=== PATIENT | male | born 1965 | race Caucasian/White ===

== ENCOUNTER 2020-09-20 12:55 | Inpatient (IN) | payer OTHER ==
[~2020-09-20] VITALS: Ht 162.6 cm; Wt 77.6 kg
[2020-09-20 13:10] VITALS: Ht 162.6 cm; Wt 77.6 kg
[2020-09-20 13:31] LABS: BASOPHIL % 0.3 % (0-2); RED CELL DISTRIBUTION WIDTH 14.3 % (11.5-14.5)
--- NOTE | 2020-09-20 13:31 | NUR ---
PT BIBA REPORTING CHEST PAIN X3 MONTHS. PT STATES CHEST PAIN OCCURS ON EXERTION. PT STATES PAIN BEGAN TO GET WORSE OVER THE LAST 3 DAYS. PT REPORTS "PRESSURE/SHARP" PAIN TO CHEST THAT RADIATES TO L. SHOULDER AND EPIGASTRIC AREA. PT REPORTS PMHX OF SC IN 2005 & 2010 WHERE HE HAD 2 STENTS PLACED. PT BRADYCARDIC PER MEDIC IN ROUTE. PT PLACED OF FCM, RESP E/U. PT APPEARS TO BE IN NO ACUTE DISTRESS. PT CURRENLTY ON GURNEY, SIDE RAILS X2, 2 CORRECTIONAL OFFICERS IN ROOM. NO FURTHER NEEDS NOTED.
[2020-09-20 13:36] LABS: PLATELET COUNT 125 x10^3mcL (130-400)
[2020-09-20 13:45] LABS: CALCIUM 9.4 mg/dL (8.5-10.1); CHLORIDE SERUM 108 mmol/L (98-107); CREATININE SERUM 1.1 mg/dL (0.7-1.3); GFR1 > 60 mL/min; GLUCOSE SERUM 91 mg/dL (74-106); POTASSIUM SERUM 4.7 mmol/L (3.5-5.1); SODIUM SERUM 142 mmol/L (136-145)
[2020-09-20 14:01] LABS: ALBUMIN 4.2 g/dL (3.4-5.0); ALKALINE PHOSPHATASE 118 U/L (46-116); ALT/SGPT 44 U/L (16-63); AST/SGOT 33 U/L (15-37); BILIRUBIN TOTAL 0.45 mg/dL (0.20-1.00); TOTAL PROTEIN, SERUM 7.6 g/dL (6.4-8.2)
[2020-09-20] MEDS ORDERED: D-10001 TAB PO (14:47)
[2020-09-20] MEDS ORDERED: LIPI10 PO (14:49)
[2020-09-20] MEDS ORDERED: OMEPRAZOLE MAGN20 M1 PO (14:49)
[2020-09-20] MEDS ORDERED: DULCOLAX5 M1 PO (14:49)
[2020-09-20] MEDS ORDERED: NOR5 PO (14:50)
[2020-09-20] MEDS ORDERED: ASPIRIN FOR CHI81 M1 PO (14:50)
[2020-09-20] MEDS ORDERED: LEVOXYL0.05 MG PO (14:50)
--- NOTE | 2020-09-20 15:24 | NUR ---
PT ASLEEP ON GURNEY S/F. AROUSABLE TO VERBAL STIMULI. RESPIRATION E/U. CORRECTIONAL OFFICERS AT BEDSIDE. PT DENIES PAIN/DISCOMFORT AT THIS TIME.
[2020-09-20 15:39] LABS: CHOLESTEROL/HDL RATIO 4.5; MAGNESIUM 2.3 mg/dL (1.8-2.4)
--- NOTE | 2020-09-20 16:21 | NUR ---
RECEIVED FROM ER, TRANSPORTED VIA [facility], ACCOMPANIED BY TWO CORRECTIONAL OFFICERS. PT ABLE TO AMBULATE TO BED FROM [facility]. AWAKE AND ALERT, ORIENTED TO NAME, PLACE, TIME AND SITUATION. SPEECH CLEAR AND APPROPRIATE. BREATHING EVEN AND UNLABORED ON ROOM AIR. DENIES HAVING PAIN AT THIS TIME. STATED EARLIER TODAY HAD PRESSURE LIKE PAIN TO LEFT SIDE OF CHEST. SALINE LOCK TO LEFT AC. ADMISSION HISTORY AND ASSESSMENT DONE. INSTRUCTED ON USE OF CALL LIGHT TO CALL FOR ASSISTANCE, PLACED WITHIN EASY REACH. ENDORSED TO NURSE EDGAR
--- NOTE | 2020-09-20 16:30 | NUR ---
RECEIVED PATIENT FROM RESOURCE NURSE, NO SIGNIFICANT CHANGES AT THIS TIME
[2020-09-20 16:40] VITALS: BP 151/88
--- NOTE | 2020-09-20 18:15 | NUR ---
PATIENT RESTING COMFORTABLY IN BED NO C/O OF PAIN OR DISCOMFORT AT THIS TIME, WILL ENDORSE CARE TO PM NURSE
--- NOTE | 2020-09-20 20:07 | NUR ---
RECEIVED PT IN BED AAOX4 NO ACUTE DISTRESS PT DENY CHEST PAIN AT THE MOMENT , ON TELE 13 THATS SHOWS SB HR 40, ON RA SAT 98% NO RESP DISTRESS NOTED LUNG SOUNDS DM ,HL TO LAC INTACT FLUSHING WELL , GUARDS AT THE BEDSIDE FOR SAFETY , CALL LIGHT WITHIN PT'S REACH , WILL CON'T TO MONITOR AND ASSIST PT WITH CARE .
--- NOTE | 2020-09-20 20:57 | NUR ---
DR ARBOLEDA'S AWARE OF PT'S LOW HR , PT'S ASYMPTOMATIC AT THE MOMENT , WILL CON'T TO MONITOR PT .
--- NOTE | 2020-09-20 22:09 | NUR ---
TYLENOL 650MG PO GIVEN FOR H/A , 22G IV INSERTED TO RFA BY RN , PT TOLERATED WELL , OLD IV SITE REMOVED PER PT REQUEST THAT IV SITE WAS HURTING ,ANGIO CATH INTACT.
--- NOTE | 2020-09-20 23:31 | NUR ---
TROPS 0.118 DR ARBOLEDA AWARE ORDERED LOVENOX 1MG/KG BID 1ST DOSE TONIGH, PT'S IN BED DENY CHEST PAIN , TELE SB HR 40
--- NOTE | 2020-09-21 00:24 | NUR ---
LOVENOX 80MG GIVEN LLQ SQ ORDERED. NO S/S OF BLEEDING NOTED , PT;S AWAKE DENY CHEST PAIN AT THE MOMENT , TELE SB HR 41.
--- NOTE | 2020-09-21 00:47 | NUR ---
I HAVE REVIEWED THE DATA COLLECTION BY LAUREN (NAME): PAWAN STEELE ENTERED ON (DATE/TIME): 09/20/20 I CONCUR WITH THE DATA AND ANY EXCEPTIONS OR COMMENTS ARE LISTED BELOW: NONE PATIENT'S PLAN OF CARE WAS DISCUSSED AND REVIEWED WITH SALES REPRESENTATIVE [employer]: PAWAN STEELE
--- NOTE | 2020-09-21 06:25 | NUR ---
NO CHANGES OF CONDITION NOTED, PT'S HR REMAINED ON 30'S AYMPTOMATIC , SCHEDULED MEDS GIVEN NO REACTION NOTED.HL PATENT
[2020-09-21 07:06] LABS: BASOPHIL % 0.5 % (0-2)
[2020-09-21 07:23] LABS: PLATELET COUNT 124 x10^3mcL (130-400); RED CELL DISTRIBUTION WIDTH 14.6 % (11.5-14.5)
[2020-09-21 07:35] LABS: CALCIUM 8.8 mg/dL (8.5-10.1); CARBON DIOXIDE 29.5 mmol/L (21-32); CHLORIDE SERUM 106 mmol/L (98-107); CREATININE SERUM 1.1 mg/dL (0.7-1.3); GFR1 > 60 mL/min; GLUCOSE SERUM 89 mg/dL (74-106); POTASSIUM SERUM 4.4 mmol/L (3.5-5.1); SODIUM SERUM 142 mmol/L (136-145)
--- NOTE | 2020-09-21 08:00 | NUR ---
0725AM: PATIENT IS RESTING IN BED QUEITLY. NO ADDITIONAL DISTRESS NOTED. CALL LIGHT WITHIN REACH. WILL CONT TO MONITOR. X2 DEPUTY AT THE BEDSIDE AT ALL TIMES. 0800AM: EXPLAINED PLAN OF CARE AND PATIENT VERBALIZED UNDERSTANDING. DENIES PAIN, DISTRESS, OR SOB AT THIS TIME. WILL CONT TO MONITOR. X2 DEPUTY AT THE BEDSIDE AT TIMES.
[2020-09-21 08:39] VITALS: BP 171/67
[2020-09-21 08:44] VITALS: BP 125/76
--- NOTE | 2020-09-21 09:00 | NUR ---
MOVED PATIENT TO ROOM 232B. IN STABLE CONDITION AT THIS TIME.
[2020-09-21 12:23] VITALS: BP 116/73
--- NOTE | 2020-09-21 13:30 | NUR ---
MOVED TO ROOM 230A IN STABLE CONDITION.
--- NOTE | 2020-09-21 14:00 | NUR ---
DR NICOLE AT THE STATION AND OK FOR PATIENT TO TAKE A SHOWER. MADE PATIENT AWARE AND DEPUTY.
[2020-09-21 15:53] VITALS: BP 113/74
--- NOTE | 2020-09-21 18:30 | NUR ---
NO BEHAVIOR DISTURBANCE NOTED THE WHOLE SHIFT. PATIENT WAS CALM, POLITE,A DN COMPLIANT WITH PLAN OF CARE.
--- NOTE | 2020-09-21 18:30 | NUR ---
PATIENT IS RESTING IN BED QUEITLY. NO ADDITIONAL DISTRESS NOTED. CALL LIGHT WITHIN REACH. STABLE CONDITION THE WHOLE SHIFT. DEPUTY X2 AT THE BEDSIDE AT ALL TIMES.
--- NOTE | 2020-09-21 19:55 | NUR ---
RECEIVED PT IN BED AAOX4 DENY CHEST PAIN , TELE SB HR 45. HL PATENT FLUSHING WELL , CALL LIGHT WITHIN PT\;S REACH , WILL CON'T TO MONITOR AND ASSIST PT WITH CARE .
[2020-09-21 20:11] VITALS: BP 114/70; BP 114/72
--- NOTE | 2020-09-22 03:24 | NUR ---
IN BED WITH EYES CLOSED , TELE SB HR 45
[2020-09-22 04:58] VITALS: BP 122/75
--- NOTE | 2020-09-22 06:27 | NUR ---
PREP PT FO CARDIAC CATH , PT TOLERATED WELL , KEPT NPO SINCE MIDNIGHT ,NO ACUTE DISTRESS NOTED, SCHEDULED MEDS GIVEN EXCEPT LOVENOX. TELE SB HR 46.
[2020-09-22 06:38] LABS: microscopic required? NO
--- NOTE | 2020-09-22 07:10 | NUR ---
OFF THE FLOOR FOR CARDIAC CATH.
[2020-09-22 07:26] LABS: UA SPECIFIC GRAVITY 1.015 (1.005-1.035); urine erythrocyte NEGATIVE (NEGATIVE)
[2020-09-22 08:16] LABS: AMPHETAMINE QUAL UR NONE DETECTED (See below)
[2020-09-22 08:30] VITALS: BP 129/84
--- NOTE | 2020-09-22 08:30 | NUR ---
EXPLAINED PLAN OF CARE AND PATIENT VERBALIZED UNDERSTANDING. NO ADDITIONAL DISTRESS NOTED AT THIS TIME.
--- NOTE | 2020-09-22 08:30 | NUR ---
PATIENT RETURN FROM [facility]. PATIENT IS RECOMMENDED TO HAVE OPEN HEART SURGERY. NOTED X3 CAD. PATIENT IS IN STABLE CONDITION. INSTRUCT TO LAY FLAT FOR 2HOURS. RIGHT GROIN DRESSING CLEAN, DRY, AND INTACT. PATIENT IS AAOX4, ABLE TO MAKE NEEDS KNOWN DEPUTY AT THE BEDSIDE AT ALL TIMES.
--- NOTE | 2020-09-22 10:30 | NUR ---
1030AM: ITS BEEN 2 HOURS SINCE PATIENT HAS BEEN LAYING FLAT ON HIS BACK. MADE PATIENT AWARE THAT HIS OKAY TO OOB.
[2020-09-22 12:07] VITALS: BP 121/76
[2020-09-22 17:00] VITALS: BP 121/77
--- NOTE | 2020-09-22 18:30 | NUR ---
PATIENT IS RESTING IN BED QUEITLY. NO ADDITIONAL DISTRESS NOTED. CALL LIGHT WITHIN REACH. RIGHT GROIN DRESSING C/D/I. WILL CONT TO MONITOR. DEPUTY X2 AT [facility] BEDSIDE AT ALL TIMES.
--- NOTE | 2020-09-22 19:25 | NUR ---
IN BED AAOX4 NO ACUTE DISTRESS NOTED , PT DENY CHEST PAIN , TELE SB HR 48, HL INTACT , S/P CARDIAC CATH SITE C/D/I NO HEMATOMA NOTED , CALL LIGHT WITHIN PT;S REACH .
[2020-09-22 19:59] VITALS: BP 115/73
[2020-09-23 05:09] VITALS: BP 108/66
--- NOTE | 2020-09-23 06:43 | NUR ---
NO CHANGES OF CONDITION NOTED, CATH SITE PATENT NO HEMATOMA NOTED , HL INTACT , TELE SB HR 45
--- NOTE | 2020-09-23 07:20 | NUR ---
0720AM: PATIENT IS RESTING BE QUIETLY. NO ADDITIONAL DISTRESS NOTED. RIGHT GROIN CARDIAC CATH SITE DRESSING C/D/I. CALL LIGHT WITHIN REACH. WILL CONT TO MONITOR.
--- NOTE | 2020-09-23 08:00 | NUR ---
0800AM: EXPLAINED PLAN OF CARE AND PATIENT VERBALIZED UNDERSTANDING. STABLE CONDITION AT THIS TIME. DEPUTY X2 AT THE BEDSIDE AT ALL TIMES. WILL CONT TO MONITOR.
[2020-09-23 08:15] VITALS: BP 103/79
[2020-09-23 12:10] VITALS: BP 113/77
--- NOTE | 2020-09-23 14:30 | NUR ---
PATIENT TOOK A SHOWER. STABLE CONDITION AT THIS TIME.
[2020-09-23 16:50] VITALS: BP 104/66
--- NOTE | 2020-09-23 18:34 | NUR ---
PATIENT IS RESTING IN BEQ QUIETLY, WATCHING TV. NO ADDITIONAL DISTRESS NOTED. CALL LIGHT WITHIN REACH. DEPUTY X2 AT THE BEDSIDE AT ALL TIMES. WILL CONT TO MONITOR.
--- NOTE | 2020-09-23 19:30 | NUR ---
RECEIVED PT FROM DAY SHIFT NURSE, PT IS RESTING IN BED AWAKE AND ALERT A&OX4. TELE 13, NSR. DENIES CP, DIZZINESS, GILLIAM, N/V AND PALPITATIONS. PALPABLE PULSES, NO EDEMA NOTED. BREATHING IS EVEN AND UL ON RA, LUNG SOUNDS CTA. NO SOB OR ACUTE RESPIRATORY DISTRESS NOTED. BOWEL SOUNDS ACTIVE X4, ABD IS SOFT AND ROUND. AMBULATORY AT BASELINE, VOIDS W/O DIFFICULTY. CARDIAC CATHETER INSERTION SITE TO R GROIN, TEGADERN IN PLACE, CDI NO ACTIVE BLEEDING NOTED. IV TO RFA, CDI AND PATENT, FLUSHING WELL. NO C/O PAIN OR DISCOMFORT NOTED. BED IN LOWEST POSITION. CALL LIGHT IS W/IN REACH. WILL CONTINUE TO MONITOR.
[2020-09-23 20:54] VITALS: BP 99/69
--- NOTE | 2020-09-24 | NUR ---
PT IS RESTING IN BED AWAKE AND ALERT. NO C/O PAIN OR DISCOMFORT AT THIS TIME. REMAINS IN STABLE CONDITION. BED IN LOWEST POSITION. CALL LIGHT IS W/IN REACH. WILL CONTINUE TO MONITOR.
[2020-09-24 05:25] VITALS: BP 121/67
--- NOTE | 2020-09-24 06:09 | NUR ---
PT IS RESTING IN BED AWAKE AND ALERT. NO C/O PAIN OR DISCOMFORT THROUGHOUT SHIFT. VSS. REMAINS IN STABLE CONDITION. NO SIGNIFICANT CHANGES AT THIS TIME. BED IN LOWEST POSITION. CALL LIGHT IS W/IN REACH. WILL ENDORSE TO DAY SHIFT NURSE.
--- NOTE | 2020-09-24 07:44 | NUR ---
RECEIVED PT FROM PM NURSE. PT IS AWAKE AND RESTING COMFORTABLY AT THIS TIME. NO FACIAL DISTRESS OR SOB NOTED. PT IS A/OX4. ABLE TO MAKE NEEDS KNOWN. DENIES GILLIAM/DIZZINESS. LUNG SOUNDS CTA. BREATHING E/U ON RA. TELE #13. DENIES CP/PRESSURE. PALPABLE PULSES. NO EDEMA NOTED. ACTIVE BSX4. ABD SOFT AND ROUND. DENIES N/V/D. VOIDS FREELY. SKIN INTACT. CARDIAC CATHETER INSERTION SITE TO R GROIN. TEGADERM IN PLACE. CDI. NO C/O PAIN AT THIS TIME. IV 22G TO RFA. SL. FLUSHES WITH NO DIFFICULTY. BED AT LOWEST POSITION. CALL BUTTON WITHIN REACH. GUARDS BY BEDSIDE. WILL CONTINUE TO MONITOR.
[2020-09-24 08:07] VITALS: BP 121/73
[2020-09-24 16:44] VITALS: BP 95/71
--- NOTE | 2020-09-24 18:47 | NUR ---
NO ACUTE DISTRESS DURING SHIFT. WILL ENDORSE CARE TO PM SHIFT FOR CONTINUITY OF CARE.
--- NOTE | 2020-09-24 19:20 | NUR ---
RECEIVED PT FROM DAY SHIFT RN. PT A&O X4. PT DENIES CHEST PAIN OR DISCOMFORT AT THIS TIME. PT ON TELE#13, SB AT 50S, PUSLES REGULAR AND NO EDEMA NOTED. LUNG SOUNDS CLEAR BILATERAL, ON ROOM AIR. BOWEL SOUNDS ACTIVE, ABDOMEN SOFT AND NON-TENDER. PT DENIES ABDOMEN PAIN. SKIN WARM AND DRY, CARDIAC CATH R GROIN NO REDNESS OR WARM NOTED.IV RFA, INTACT AND PATENT. INSTRUCTED PT TO USE CALL LIGHT AND PHONE WHEN NEED ASSISTANCE. WILL CONTINUE TO MONITOR PT.
[2020-09-24 21:09] VITALS: BP 115/65
[2020-09-25] VITALS (7 sets, daily range): BP systolic 105–122; BP diastolic 64–81
--- NOTE | 2020-09-25 | NUR ---
IN TO CHECK ON PT. PT RESTING IN BED. DENIES CHEST PAIN OR DISCOMFORT. NO SOB NOTED. WILL CONTINUE TO MONITOR PT.
--- NOTE | 2020-09-25 07:02 | NUR ---
PT RESTING WELL DURING SHIFT. NO ACUTE S/S CONDITION NOTED. PT DENIES CHEST PAIN, DENIES N/V, DENIES SOB. WILL ENDORSE CARE TO DAY SHIFT RN.
--- NOTE | 2020-09-25 07:32 | NUR ---
RECEIVED PT FROM PM NURSE. PT IS AWAKE AND RESTING COMFORTABLY IN BED AT THIS TIME. NO FACIAL DISTRESS OR SOB NOTED. PT IS A/OX4. ABLE TO MAKE NEEDS KNOWN. DENIES GILLIAM/DIZZINESS. LUNGS SOUNDS CTA. BREATHING E/U ON RA. TELE #13. DENIES CP OR PALPITATIONS. PULSES EVEN AND PALPABLE. NO EDEMA NOTED. ACTIVE BSX4. ABD SOFT AND NON DISTENDED. VOIDS FREELY. URINAL BY BEDSIDE. AMBULATORY BASELINE. SKIN INTACT. TEGADERM IN PLACE TO THE RIGHT GROIN D/T PREVIOUS CARDIAC CATH INSERTION. NO C/O PAIN AT THIS TIME. IV 22G TO RFA. SL. FLUSHES WITH NO DIFFICULTY. BED AT LOWEST POSITION. CALL BUTTON WITHIN REACH. GUARDS BY BEDSIDE. WILL CONTINUE TO MONITOR.
--- NOTE | 2020-09-25 10:15 | NUR ---
RECEIVED PATIENT TRANSFER FROM NURSE. RECEIVED REPORT. PATIENT LUNGS ARE CLEAR/DIMINISHED. HR REGULAR BUT ANAMARIA. BOWEL SOUNDS ACTIVE. NO EDEMA NOTED. PATIENT DENIES PAIN AT THIS TIME. WILL CONTINUE TO MONITOR. BED LOCKED IN LOWEST POSITION. CALL LIGHT IN REACH. GUARDS AT BEDSIDE. WATER PROVIDED. DENIES NEEDING ANYTHING AT THIS TIME.
--- NOTE | 2020-09-25 10:21 | NUR ---
PT WAS TESTED POSITIVE FOR COVID 19. PT WILL BE MOVING TO [address] [place] [address]. REPORT GIVEN TO PAL PUENTE. PT LEFT IN STABLE CONDITION TO ROOM 201B WITH ALL PERSONAL BELONGINGS.
--- NOTE | 2020-09-25 18:02 | NUR ---
PATIENT ALERT AND ORIENTED. DENIES NEEDING ANYTHING AT THIS TIME. BED LOCKED IN LOWEST POSITION. CALL LIGHT IN REACH. DENIES PAIN AT THIS TIME.
--- NOTE | 2020-09-25 19:49 | NUR ---
IN BED NO RESP DISTRESS NOTED , TELEL 13 SHOWS SB HR 48, PT DENY CHEST PAIN AT THE MOMENT , HL INTACT FLUSHING WELL. CALL LIGHT WITHIN PT'S REACH .
--- NOTE | 2020-09-26 01:41 | NUR ---
PT IN BED WITH EYES CLOSED , TELE SB HR 48
[2020-09-26 05:22] VITALS: BP 109/67
--- NOTE | 2020-09-26 06:45 | NUR ---
NO CHANGES HR 48, HL PATENT .
--- NOTE | 2020-09-26 07:33 | NUR ---
RECEIVEE PATIENT IN BED, ALERT AND ORIENTED. GUARDS AT AT DOOR TELE 13 SB. NO RESP DISTRESS NOTED. HL RT F/A. DENIES ANY PAIN OR DISCOMFORT AT THIS TIME. WILL CONTINUE TO MONITOR.
[2020-09-26 07:35] LABS: CARBON DIOXIDE 29.8 mmol/L (21-32); CHLORIDE SERUM 103 mmol/L (98-107); CREATININE SERUM 1.1 mg/dL (0.7-1.3); GFR1 > 60 mL/min; GLUCOSE SERUM 83 mg/dL (74-106); POTASSIUM SERUM 5.1 mmol/L (3.5-5.1); SODIUM SERUM 140 mmol/L (136-145)
--- NOTE | 2020-09-26 07:40 | NUR ---
PATIENT IS IN ISOLATION FOR + COVID.
[2020-09-26 07:50] LABS: BASOPHIL % 0.7 % (0-2); RED CELL DISTRIBUTION WIDTH 13.4 % (11.5-14.5)
[2020-09-26 07:51] LABS: PLATELET COUNT 117 x10^3mcL (130-400)
--- NOTE | 2020-09-26 08:57 | NUR ---
PATIENT'S SAT DROPPED FROM 84%-34%. PATIENT FOUND WITH OXYMIZEER AND NRM OFF EATING HIS BREAKFAST TRAY. O2 REAPPLIED SAT 84%. R.T AWARE AND WILL PUT PATIENT ON HIGH FLOW O2. PATIENT MOVED TO ROOM 214B A NEGATIVE AIR FLOW ROOM AT THIS TIME. PATIENT SITTING UP IN BED AWAKE AND ALERT. WILL CONTINUE TO MONITOR.
--- NOTE | 2020-09-26 09:48 | NUR ---
MICAELA IS SITTING UP IN BED, GUARDS AT DOOR. PATIENT REQUESTING TO SHOWE. PATIENT DOES HAVE A DR.'S ORDER THAT HE MAY SHOWER, BUT PER THE [facility] GUARDS AT DOORWAY IT IS NOT THEIR POLICY THAT PATIENT SHOWERS. WILL PROVIDED PATIENT WITH SUPPLIES TO WASH UP.
[2020-09-26 12:17] VITALS: BP 109/72
--- NOTE | 2020-09-26 13:40 | NUR ---
PATIENT'S PLAN OF CARE WAS DISCUSSED AND REVIEWED WITH PROVIDER CONTRACTING CONSULTANT:JOSIE BEASLEY. I HAVE REVIEWED THE DATA COLLECTION BY PROVIDER CONTRACTING CONSULTANT (NAME):JOSIE BEASLEY. ENTERED ON (DATE/TIME):09/26/20. I CONCUR WITH THE DATA AND ANY EXCEPTIONS OR COMMENTS ARE LISTED BELOW:
--- NOTE | 2020-09-26 15:14 | NUR ---
PATIENT REMAINS IN BED. NO CHANGE IN CONDITION NOTED. CONTINUES TO DENY ANY CHEST PAIN OR DISCOMFORT. NO ACUTE DISTRESS NOTED.
[2020-09-26 16:41] VITALS: BP 101/69
--- NOTE | 2020-09-26 18:01 | NUR ---
PATIENT REMAINS IN BED. NO CHANGE IN CONDITION NOTED THIS SHIFT. CONTINUES TO DENY ANY CHEST PAIN OR DISCOMFORT.
--- NOTE | 2020-09-26 18:26 | NUR ---
RECEIVED CALL FROM JULIANNE AT [facility], STATES THEY ARE UNABLE TO ACCEPT THIS PATIENT DUE TO POSITIVE COVID PCR. DR. ARBOLEDA MADE AWARE.
[2020-09-26 19:18] VITALS: BP 112/69
--- NOTE | 2020-09-26 19:35 | NUR ---
IN BED DENY CHEST PAIN , TELE NSR HR 66 , HL PATENT FLUSHING WELL , GUARDS AT THE BED SIDE FOR SAFETY . RESP EVEN NO DISTRESS NOTED .
--- NOTE | 2020-09-27 02:55 | NUR ---
MOVED PT TO ROOM 221A , RE-ORIENTED PT TO THE ROOM PT VERBALIZED UNDERSTANDING , TELE NSR .
[2020-09-27 04:23] VITALS: BP 126/72
--- NOTE | 2020-09-27 06:48 | NUR ---
NO CHANGES , PT;S IN BED AWAKE TELE SB HR 48
[2020-09-27 07:21] VITALS: BP 107/74
--- NOTE | 2020-09-27 07:44 | NUR ---
RECEIVED PT FROM NIGHT NURSE. HE IS AAOX4. FOUND SITTING UPRIGHT AND COMFORTABLY IN BED. DENIES CHEST PAIN AND PARESTHESIAS IN UPPER EXTREMITIES, DESPITE HX. HR 58 BPM ON THE MONITOR. NO ACUTE DISTRESS NOTED. 97% SAO2 ON ROOM AIR. WILL CONTINUE TO MONITOR.
[2020-09-27 12:32] VITALS: BP 108/68
--- NOTE | 2020-09-27 13:53 | NUR ---
Initial Nutrition Assessment 201B León Guaman - 55/M Dx: Chest Pain PMHx: CAD, HTN, MA, Syncope PSHx: None Labs: (09/25) PLT CT 117L, BUN 19H, TROP 0.118H, TRIG 166H, LDL 121H Meds: Synthroid, Prilosec, Lovenox, Zestril, Lipitor, Vit D, Colace, Aspirin, Tylenol Diet: Cardiac PO intake since admission: 96% po intake average x last 6 meals Ht: 162.56cm/ 5'3" Wt: 77.564kg/ 170# BMI: 29.4 Bed scale: isolation IBW: 124#/ 56.4kg %IBW: 137% UBW: not seen Age: 55 Food Allergies: NFKA Skin condition: intact Sanchez: 22 Edema: None Last BM: 09/26 Per H&P: 54 YO MALE H/O CAD STENT MA HTN [facility] RESIDENT. HE HAD BEEN C/O CHEST PAIN ON AND OFF X FEW MONTHS. HES NOT SEEN A REPORTING ANALYST IN YEARS. HE C/O INCARESED CP THROUGHOUT THE DAY, PRESSURE LIKE SENSATION EXERTIONAL INCARESED INTENSITY. HE WAS SEEN AND EVAULTED AT THE ED, INITIAL TROPONIN WAS NEG. HE WAS ADMITTED TO [facility] FOR FURTHER EVALUATION. RD Note (09/27): Pt not seen d/t "SARS-CoV-2 PCR came back positive and patient and been placed in isolation" from last night testing. Attempting calling patient room number, did note answer. From RN shift reassessment and nutrition flowsheets patient is eating near optimal average of 96% of his cardiac diet. He is tolerating nutrition well. Had a episode of chest pain yesterday and transferred to isolation d/t covid coming back positive. Per progress note pt is pending transfer to higher level of care for CT surgery evaluation for CABG. Problem with: N/V/D/C: none per shift reassessment Problems with: Chewing: Swallowing: none Current appetite: good/ optimal intake Recent wt change: unknown %wt change: unknown Vitamin/Supplement use: unknown Special diet at home: regular Physical activity: none Nutrition education given (specify specific nutrition education and handout given): no Estimated Nutritional Needs Based on [place] (56.4kg) body weight Energy: 1692 - 1974 kcal/ day (30-35 kcal/kg) COVID 19 Protein: 68 - 85 g/day (1.2-1.5 g/kg) infection/ cardiac dysfunction Fluid: 1692 - 1974 mL/day (1 mL/kcal) Nutrition Diagnosis: Increased nutrient needs viral infection/ cardiac dysfunction aeb weakness, chest pain, positive COVID 19 result Intervention 1. Continue with a Cardiac Diet as tolerated. Monitor/Evaluate Goal: PO intake at least 75% of estimated needs Monitor: PO intake, Labs, GI function F/U in 3-5 days as moderate risk 09/30-
--- NOTE | 2020-09-27 13:54 | NUR ---
1. Continue with a Cardiac Diet as tolerated.
[2020-09-27 16:59] VITALS: BP 112/72
--- NOTE | 2020-09-27 18:44 | NUR ---
REMOVED CARDIAC CATH DRESSING FROM R INGUINAL AREA. SKIN IS INTACT WITH NO BLEEDING OR WOUND. BASELINE HR REMAINED BETWEEN 45-60 BPM. PT CONSISTENTLY DENIES FATIGUE, CHEST PAIN, AND PARESTHESIAS. STILL AWAITING CONFIRMATION FROM YUDELKA CHURCHILL ABOUT BED PLACEMENT FOR HIGHER LEVEL OF CARE/PROCEDURE. CIM GUARDED. WILL ENDORSE TO NIGHT NURSE.
--- NOTE | 2020-09-27 19:45 | NUR ---
RECEIVED PT FROM AM NURSE AT THIS TIME, PT AWAKE IN BED WATCHING TELEVISION. AA/O X 4, ABLE TO MAKE NEEDS KNOWN, CLEAR SPEECH, DENIES HEADACHE/ DENIES DIZZINESS. TELE MONITOR #13, SB, HR 56 BPM- MD AWARE OF BRADYCARDIA. DENIES CHEST PAIN/ CHEST PRESSURE. PULSES PALPABLE, NO EDEMA. LUNG SOUNDS CTA, RESPIRATIONS E/U ON RA, DENIES SOB. ACTIVE BS X 4 QUADS, DENIES N/V/D. SKIN INTACT, DENIES PAIN, IV TO RFA INTACT, SL, NO ERYTHEMA/ NO INFILTRATION. NO ACUTE DISTRESS AT THIS TIME. DROPLET PRECAUTIONS IN PLACE FOR COVID 19, GUARDS OUTSIDE BEDROOM, PT IS A [facility] PT. ALL NEEDS MET, CALL BUTTON WITHIN REACH, WILL CONTINUE TO MONITOR.
[2020-09-27 21:03] VITALS: BP 102/66
--- NOTE | 2020-09-27 21:30 | NUR ---
PT BP 102/66, HR 56 BPM. BP RE-CHECKED AND IS 96/72. DENIES CHEST PAIN/ DENIES CHEST PRESSURE. BP MED HELD DUE TO PHYSICIAN PARAMETER TO HOLD MEDICATION IF SBP <100. PT UNDERSTOOD AND AGREED. PT WAS MOVED FROM ROOM 201-B TO 218-B WITHOUT INJURY. NO ACUTE DISTRESS AT THIS TIME. GUARDS AT BEDSIDE- [facility] PT. CALL BUTTON WITHIN REACH, WILL CONTINUE TO MONITOR.
--- NOTE | 2020-09-28 02:46 | NUR ---
PT IN BED RESTING WITH EYES CLOSED BUT EASILY AROUSABLE. RESPIRATIONS E/U ON RA, NO RESPIRATORY DISTRESS AT THIS TIME. TELE MONITOR SHOWING SB, SUSTAINING BETWEEN 39- 44 BPM. PT IS ASYMPTOMATIC, DENIES CHEST PAIN/ DENIES SOB. NO ACUTE DISTRESS AT THIS TIME. GUARDS AT BEDSIDE. CALL BUTTON WITHIN REACH, WILL CONTINUE TO MONITOR.
--- NOTE | 2020-09-28 05:07 | NUR ---
PT SLEPT IN INTERVALS THROUGHOUT THE NIGHT, BUT EASILY AROUSABLE. RESPIRATIONS E/U ON RA, NO RESPIRATORY DISTRESS AT THIS TIME. DENIES PAIN. TELE MONITOR SHOWING PT HR SUSTAINING SB 38 BPM TO 47 BPM. DENIES CHEST PAIN. NO ACUTE CHANGES OVERNIGHT. SHACKLE NOTED TO LEFT ANKLE, SKIN INTACT, CIRCULATION WNL. GUARDS OUTSIDE DOOR. CALL BUTTON WITHIN REACH, WILL CONTINUE TO MONITOR.
[2020-09-28 06:06] VITALS: BP 105/62
[2020-09-28 08:40] VITALS: BP 110/74
--- NOTE | 2020-09-28 10:28 | NUR ---
PATIENT IS A 55 YEAR OLD FEMALE THAT WAS ADMITTED TO [facility] FOR CHEST PAIN FOR THREE MONTHS. ADMITTING DX WAS CHEST PAIN, CARDIAC MD ON THE CASE. BRADYCARDIA NOTED PER NOC SHIFT 39-45 BMP. PATIENT COVID PCR WAS + ON 09/22. PATIENT IS ALERT AND ORIENTED ABLE TO VERBALIZE NEEDS. NO S/S OF DISTRESS NOTED. PATIENT IS [facility] WILL RETURN THERE ONCE MEDICALLY CLEARED.
[2020-09-28 11:56] VITALS: BP 103/70
[2020-09-28 16:20] VITALS: BP 110/73
--- NOTE | 2020-09-28 18:27 | NUR ---
END OF SHIFT: PATIENT STABLE PENDING TRANSFER FOR CABG TO [facility].
--- NOTE | 2020-09-28 19:30 | NUR ---
RECEIVED PT FROM DAY SHIFT NURSE, PT IS RESTING IN BED AWAKE AND ALERT A&OX4. TELE 13, SINUS BRADYCARDIA. NO C/O CP, DIZZINESS, GILLIAM, N/V OR PALPITATIONS. PALPABLE PULSES, NO EDEMA NOTED. BREATHING IS EVEN AND UL ON RA, LUNG SOUNDS CTA. NO SOB OR ACUTE RESPIRATORY DISTRESS NOTED. BOWEL SOUNDS ACTIVE X4, ABD IS SOFT AND ROUND. AMBULATORY AT BASELINE. SKIN IS INTACT. IV TO RFA, CDI AND PATENT, FLUSHING WELL. NO C/O PAIN OR DISCOMFORT AT THIS TIME. BED IN LOWEST POSITION. CALL LIGHT IS W/IN REACH. WILL CONTINUE TO MONITOR.
[2020-09-28 22:04] VITALS: BP 103/71
[2020-09-29 06:05] VITALS: BP 120/73
--- NOTE | 2020-09-29 06:07 | NUR ---
PT IS RESTING IN BED AWAKE AND ALERT. NO C/O PAIN OR DISCOMFORT THROUGHOUT SHIFT. VSS. REMAINS IN STABLE CONDITION. NO SIGNIFICANT CHANGES AT THIS TIME. CALM AND COOPERATIVE WITH CARE. BED IN LOWEST POSITION. CALL LIGHT IS W/IN REACH. WILL ENDORSE TO DAY SHIFT NURSE.
[2020-09-29 07:25] LABS: CALCIUM 9.1 mg/dL (8.5-10.1); CARBON DIOXIDE 27.7 mmol/L (21-32); CHLORIDE SERUM 103 mmol/L (98-107); CREATININE SERUM 1.1 mg/dL (0.7-1.3); GFR1 > 60 mL/min; GLUCOSE SERUM 91 mg/dL (74-106); POTASSIUM SERUM 4.6 mmol/L (3.5-5.1); SODIUM SERUM 140 mmol/L (136-145)
--- NOTE | 2020-09-29 07:39 | NUR ---
RECEIVED PT FROM PM NURSE. PT IS AWAKE AND RESTING COMFORTABLY AT THIS TIME. NO FACIAL DISTRESS OR SOB NOTED. PT IS A/OX4. ABLE TO MAKE NEEDS KNOWN. DENIES GILLIAM/DIZZNIESS. LUNG SOUNDS CTA. BREATHING E/U ON RA. TELE #13. DENIES CHEST PAIN. PULSES EVEN AND PALPABLE. NO EDEMA NOTED. ACTIVE BSX4. ABD SOFT AND NON DISTENDED. DENIES N/V/D. VOIDS FREELY. URINAL BY BEDSIDE. AMBULATORY BASELINE. SKIN INTACT. NO C/O PAIN AT THIS TIME. IV 22G TO RFA. SL. FLUSHES WITH NO DIFFICULTY. DROPLET/CONTACT PRECAUTION OBSERVED AT ALL TIMES. GUARDS STATIONED OUTSIDE. BED AT LOWEST POSITION. CALL BUTTON WITHIN REACH. WILL CONTINUE TO MONITOR.
[2020-09-29 08:02] LABS: BASOPHIL % 0.6 % (0-2); RED CELL DISTRIBUTION WIDTH 13.2 % (11.5-14.5)
[2020-09-29 08:12] LABS: PLATELET COUNT 113 x10^3mcL (130-400)
[2020-09-29 08:50] VITALS: BP 111/74
[2020-09-29 11:40] VITALS: BP 105/70
[2020-09-29 17:39] VITALS: BP 107/68
--- NOTE | 2020-09-29 18:15 | NUR ---
NO ACUTE DISTRESS NOTED DURING SHIFT. WILL ENDORSE CARE TO PM SHIFT FOR CONTINUITY OF CARE.
--- NOTE | 2020-09-29 19:30 | NUR ---
RECEIVED SHIFT REPORT FROM CINDI CALVERT. PT IS [facility] STATUS, WITH 2 OFFICERS AT BEDSIDE. PT ALERT/ORIENTED X4, IN NAD. CTA, ON ROOM AIR, DENIES ANY SOB. SB ON TELE#13, VSS. POC REINFORCED WITH PT; AWAITING HIGHER LEVEL OF CARE FOR CABG. PT VERBALIZED UNDERSTANDING. DENIES ANY CHEST OR OTHER PAIN, 0/10. DENIES ANY NEW NEEDS/CONCERNS AT THIS TIME. RT PIV SITE BENIGN, TO SL. SAFETY CHECKS COMPLETED, CALL JONES WITHIN REACH. HS CARE ONGOING.
[2020-09-29 21:10] VITALS: BP 111/71
[2020-09-30 05:35] VITALS: BP 104/77
--- NOTE | 2020-09-30 06:48 | NUR ---
VSS, AFEBRILE OVERNIGHT. PT DENIED CHEST PAIN, GENERAL PAIN, ANY SOB. CAN VERBALIZE UNDERSTANDING OF POC REGARDING HIGHER LEVEL OF CARE. 2 OFFICERS REMAIN AT BEDSIDE. SB ON TELE, 42-57. SAFETY CHECKS COMPLETED, CARE ONGOING.
--- NOTE | 2020-09-30 07:14 | NUR ---
RECEIVED PT FROM PM NURSE. PT IS AWAKE AND RESTING COMFORTABLY AT THIS TIME. NO FACIAL DISTRESS OR SOB NOTED. PT IS A/OX4. ABLE TO MAKE NEEDS KNOWN. DENIES GILLIAM/DIZZINESS. LUNG SOUNDS CTA. BREATHING E/U ON RA. TELE #13. NO C/O CHEST PAIN AT THIS TIME. PALPABLE PULSES. NO EDEMA NOTED. ACTIVE BSX4. ABD SOFT AND NON DISTENDED. DENIES N/V/D. VOIDS FREELY. URINAL BY BEDSIDE. AMBULATORY BASELINE. SKIN INTACT. NO C/O PAIN. IV 22G TO RFA. SL. BED AT LOWEST POSITION. CALL BUTTON WITHIN REACH. CONTACT/DROPLET PRECAUTION OBSERVED AT ALL TIMES. GUARDS OUTSIDE. WILL CONTINUE TO MONITOR.
[2020-09-30 08:37] VITALS: BP 114/74
--- NOTE | 2020-09-30 18:22 | NUR ---
NO ACUTE DISTRESS NOTED DURING SHIFT. WILL ENDORSE CARE TO PM SHIFT FOR CONTINUITY OF CARE.
--- NOTE | 2020-09-30 20:28 | NUR ---
PT SITTING IN BED UPON INITIAL ASSESSMENT. CMI PT WITH TWO GUARDS PRESENT OUTSIDE. PT CALM AND COOPERATIVE AND ALERT AND ORIENTED X4. PT STATES HE HAS BEEN FEELING GOOD. PT CURRENTLY ON RA AND ABLE TO CARRY CONVERSATION WITHOUT SOB. LUNG SOUNDS CLEAR TO AUSCULTATION WITH DIMINISHED LOWER LOBES. DENIES SOB OR ACUTE DISTRESS. S1 AND S2 HEARD. DENIES CHEST PAIN, PALPATATIONS, HEADAHCE, AT THIS TIME. TELE 13 WITH SINUS ANAMARIA. BOWEL SOUNDS ACTIVE X4. NORMOACTIVE. SOFT AND NON DISTENDED. BRUISING LOCATED ON STOMACH NEAR UMBILICAL AREA DUE TO LOVENOX SBQ INJECTIONS. STATES HE HAS BM TODAY. INDEPENDENT TO BATHROOM AND VOIDS INDEPENDENTLY. NO ASSIST NEEDED. PULSES PALPABLE ON ALL EXTREMITIES. WILL CONTINE TO MONITOR PATIENT AT THIS TIME. WILL
--- NOTE | 2020-09-30 21:26 | NUR ---
I HAVE REVIEWED THE DATA COLLECTION BY CINDI ALVARADO ENTERED ON (DATE/TIME):09/30/2020 7P-7A I CONCUR WITH THE DATA AND ANY EXCEPTIONS OR COMMENTS ARE LISTED BELOW:
[2020-09-30 22:22] VITALS: BP 110/71
--- NOTE | 2020-10-01 04:45 | NUR ---
PT SLEPT WELL THROUGHOUT THE NIGHT. PT WAS ON RA AND TOLERATED WELL. O2 SATURATION 98%. DENIES SOB OR TROUBLE BREATHING. PT ON TELE, SINUS ANAMARIA 45-56 THROUGHOUT THE NIGHT. DENIAL OF CHEST PAIN AT THIS TIME. WILL CONTINUE TO MONITOR AND REPORT TO ONCOMING RN.
[2020-10-01 07:11] VITALS: BP 113/73
[2020-10-01 07:29] LABS: BASOPHIL % 0.8 % (0-2); RED CELL DISTRIBUTION WIDTH 12.9 % (11.5-14.5)
[2020-10-01 07:36] LABS: CALCIUM 8.9 mg/dL (8.5-10.1); CARBON DIOXIDE 27.6 mmol/L (21-32); CHLORIDE SERUM 101 mmol/L (98-107); GFR1 > 60 mL/min; GLUCOSE SERUM 80 mg/dL (74-106); SODIUM SERUM 138 mmol/L (136-145)
--- NOTE | 2020-10-01 08:00 | NUR ---
PATIENT RECEIVED ALERT AND ORIENTED TIMES FOUR. PATIEN TAHS BEEN SITTING UP IN BED AND GAURDS AT BEDSIDE INDICATED AND SECURITY MAINTAINED. PATIENT WITH PLUES STRONG AND SKIN IS WARM AND DRY. VITALS AT THIS TIME AT 97.0, 48, 20, 113/73, 97%. PATIENT HAS BUN 20.0, LDL AT 121, TRIG 166, ALK PHOS AT 118 AND THE PLT AT 113, PATIENT HAS BEEN OOB AND TOLERATED WELL HE HAS BEEN ON ROOM AIR AND DOES NOT APPEAR IN ANY ACUTE RESPIRATORY DISTRESS. LUNGS ARE DIMINISHED BUT CLAER WOUND AND HAS NOTE DCHHEST XRAY THAT SHOW NO ACTIVE DISEASE. HE HAS BEEN POSTIVE FO RCOVIDE ON THE August. HE HAS HISTORY FO HYPERTENSION,. HEART CORONARY STNT PLACMENT, HYPOTHYROIDISM, AND HYPER LIPIDEMIA. DENIES PAIN AT THIS TIME AND DNEIES ANY SOB OR RESPIRATORY DISTRESS AT THIS TIME. PLAN OF CARE IS FOR TRANSFER TO ANTWON LEVEL OF CARE TO RECEIVE A CABAG HE NEEDS. PATIENT IS AWARE AND AGREEABLE ON THIS PLAN. CONTINUED ON DROPLET PRECAUTIONS INDICATED.
[2020-10-01 08:35] LABS: PLATELET COUNT 116 x10^3mcL (130-400)
[2020-10-01 09:16] VITALS: BP 113/79
[2020-10-01 13:32] VITALS: BP 115/75
--- NOTE | 2020-10-01 15:31 | NUR ---
SATURATION HAS IMPROVED SOMEWHAT BUT PATIEN TNEEDS TO BE REMINDED ON AND OFF. WILL CONTINUE TO MONITOR.
--- NOTE | 2020-10-01 15:34 | NUR ---
NO WORD ON THE TANFER PLAN YET. PATIENT STABLE AND DNIES CHEST PAIN AT THIS TIME.
[2020-10-01 17:23] VITALS: BP 107/75
[2020-10-01 20:37] VITALS: BP 105/72
--- NOTE | 2020-10-01 20:40 | NUR ---
Awake and verbally responsive. No respiratory distress on room air. Denies pain. Denies n/v. Sinus bradycardia on the monitor. HR- 50's. Will cont.to monitor. Call light within reach.
--- NOTE | 2020-10-02 00:47 | NUR ---
Resting at this time. No SOB noted. Denies chest pain.
--- NOTE | 2020-10-02 04:12 | NUR ---
Afebrile. No significant change in condition noted. Remained on room air. No respiratory distress noted. Denies chest pain or palpitation. In no apparent distress. Droplet /contact isolation, proper use of PPE and good hand hygiene observed.
[2020-10-02 05:22] VITALS: BP 108/74
--- NOTE | 2020-10-02 08:00 | NUR ---
RECEIVED PATIENT ALERTA ND ORIENTED TIMES FOUR. PATIENT HAS BEEN OOB ADN TOLERATED WELL AND DENIES ANY ACUTE DISRESS. HE HAS THOUGH ON AND OFF TINGES OF CHEST DISCOMFORT. HE HAS BEEN ANAMARIA ON THE MONITOR AND PER PLAN OF CARE FOR TRANSFER TO A HIGHER LEVEL OF CARE FOR A CABG. PATIENT HAS DIMINSHED BREATH SOUNDS WITH SLIGHT RALES AND NO COUGH NOTED. PATIENT AHS BEEN IN ISOLATION FOR COVID AND HE HAS BEEN WITH STRONG PULSES AND SKIN IS WARM AND DRY VITALS AT 97.8, 46, 18, 108/74, 97%. PATIENT HAS BEEN AMBULATORY AND WITH GAURDS AT BEDSIDE AND SECURITY HAS BEEN MAINTAINED.
[2020-10-02 09:00] VITALS: BP 113/73
--- NOTE | 2020-10-02 10:52 | NUR ---
BP AT 117/76 GAVE ALL MEDICATIONS ORDERED. PATIENT HAS NO DISTRESS AT THIS TIME. WILL CONTINUE TO MONITOR INDICATED.
[2020-10-02 12:58] VITALS: BP 106/68
--- NOTE | 2020-10-02 14:29 | NUR ---
Follow up Nutrition Assessment [address] [place]aman - 55/M Dx: Chest Pain PMHx: CAD, HTN, [place], Syncope, covid-19 PSHx: None Labs: BUN: 20H, Meds: Synthroid, Prilosec, Lovenox, Zestril, Lipitor, Vit D, Colace, Aspirin, Tylenol Diet: Cardiac PO intake since admission: 80-100% BMI: 29.4 Bed scale: isolation Age: 55 Skin condition: intact Sanchez: 23 Edema: None noted Last BM: 09/29 Per H&P: 54 YO MALE H/O CAD STENT [place] HTN [facility] RESIDENT. HE HAD BEEN C/O CHEST PAIN ON AND OFF X FEW MONTHS. HES NOT SEEN A GARBAGE MAN IN YEARS. HE C/O INCARESED CP THROUGHOUT THE DAY, PRESSURE LIKE SENSATION EXERTIONAL INCARESED INTENSITY. HE WAS SEEN AND EVAULTED AT THE ED, INITIAL TROPONIN WAS NEG. HE WAS ADMITTED TO [facility] FOR FURTHER EVALUATION. RD Note (09/27): Pt not seen d/t "SARS-CoV-2 PCR came back positive and patient and been placed in isolation" from last night testing. Attempting calling patient room number, did note answer. From RN shift reassessment and nutrition flowsheets patient is eating near optimal average of 96% of his cardiac diet. He is tolerating nutrition well. Had a episode of chest pain yesterday and transferred to isolation d/t covid coming back positive. Per progress note pt is pending transfer to higher level of care for CT surgery evaluation for CABG. RD note (10/02): spoke with pt over the phone at the nursing station. Pt had no complaints, reported he is eating all his meals. Pt also reported his stomach has been feeling better the past few days. Estimated Nutritional Needs Based on Davin (56.4kg) body weight Energy: 1692 - 1974 kcal/ day (30-35 kcal/kg) COVID 19 Protein: 68 - 85 g/day (1.2-1.5 g/kg) infection/ cardiac dysfunction Fluid: 1692 - 1974 mL/day (1 mL/kcal) Nutrition Diagnosis: 1) Increased nutrient needs viral infection/ cardiac dysfunction aeb weakness, chest pain, positive COVID 19 result Intervention 1. Continue with a Cardiac Diet as tolerated. 2. Recommend ONS if pt is not meeting estimated needs Monitor/Evaluate Goal: PO intake at least 75% of estimated needs (met, ongoing) Monitor: PO intake, Labs, GI function F/U in 3-5 days as moderate risk 10/05-
--- NOTE | 2020-10-02 14:30 | NUR ---
1. Continue with a Cardiac Diet as tolerated. 2. Recommend ONS if pt is not meeting estimated needs
[2020-10-02 17:20] VITALS: BP 105/73
--- NOTE | 2020-10-02 18:50 | NUR ---
PATIENT HAS HAD NO REQUESTS AND NO COMPLAINTS OF CHEST PAIN OR SOB DURING THE SHIFT. TOLRATED DIET AND FLUIDS AND OOB WEL. GUARDS AT BEDSIDE AND SECURITY MAINTAINED.
--- NOTE | 2020-10-02 20:00 | NUR ---
RECEIVED PT IN BED AWAKE, RESTING COMFORTABLY. A/O X 4 ABLE TO MAKE NEEDS KNOWN, ABLE TO FOLLOW COMMANDS, SPEECH IS CLR, NO AH OR DIZZINESS. LUNGS SOUNDS CLR, RESP IS EVEN AND UNLABORED, ON RA SPO2 98%, NO COUGH. RADIAL AND PEDAL PULSES PRESENT, NO EDEMA NOTED. ON TELE 13, SB, NO C/O CHEST PAIN. ABD ROUND AND SOFT, ACTIVE BS PRESENT X4, NO NVD. VOIDS FREELY, NO C/O DISCOMFORT, SKIN IS WARM, DRY AND INTACT. ABLE TO AMBULATE, 2 CIM OFFICER OUTSIDE THE ROOM. BED TO LOWEST POSITION, CALL LIGHT WITHIN REACH. WILL CONT TO MONITOR FOR CHANGES IN CONDITION.
[2020-10-02 21:06] VITALS: BP 113/78
[2020-10-03 06:25] VITALS: BP 127/82
--- NOTE | 2020-10-03 06:52 | NUR ---
PT IN BED AWAKE RESTING COMFORTABLY. NO C/O PAIN, NO ACUTE DISTRESS NOTED. RESP IS EVEN AND UNLABORED, REMAINED IN RA, SPO2 98%. NO C/O CHEST PAIN CONT ON TELE MONITORING TELE # 13, SB HR 55, NO DIZZINESS REPORTED. CALL LIGHT WITHIN REACH, BED TO LOWEST POSITION, WILL CONT TO MONITOR PT FOR CHANGES IN CONDITION AND ENDORSE TO NEXT SHIFT NURSE.
[2020-10-03 07:37] LABS: BASOPHIL % 0.4 % (0-2); RED CELL DISTRIBUTION WIDTH 13.9 % (11.5-14.5)
[2020-10-03 07:58] LABS: CALCIUM 9.3 mg/dL (8.5-10.1); CARBON DIOXIDE 30.1 mmol/L (21-32); CHLORIDE SERUM 102 mmol/L (98-107); CREATININE SERUM 1.2 mg/dL (0.7-1.3); GFR1 > 60 mL/min; GLUCOSE SERUM 90 mg/dL (74-106); POTASSIUM SERUM 4.7 mmol/L (3.5-5.1); SODIUM SERUM 138 mmol/L (136-145)
--- NOTE | 2020-10-03 08:00 | NUR ---
RECEIVED PATIENT ALERT AND ORIENTED TIMES FOUR. PATIENT HAS BEEN NOTED WITH NO PAIN AT THIS TIME, BUT STATES AT NIGHT HE FEELS PRESSURE ON AND OFF TO HIS CHEST. PATIENT HAS CLEAR BUT DIMINIHSED BREATH SOUNDS AND PATIENT HAS BEEN AMBULATORY AND HAS BEEN OOB TO THE RESTROOM AND BACK WITHOUT DIFFCULTY. PATIENT HAS PULSES STRONG TO ALL EXTREMTIES AND NO EDEMA NOTED. VITALS ARE STABLE AT 98.5,55, 18, 127/82, 96%. PATIENT SI SINUS ANAMARIA ON THE MONITOR. GUARDS AT BEDSIDE AND SECURITY HAS BEEN MAIMTAINED. AWAITING TRANSFER ORDERS FOR PATIENT TO GO TO HIGHER LEVEL OF CARE FOR CABG.
[2020-10-03 08:39] VITALS: BP 135/92
[2020-10-03 08:46] LABS: PLATELET COUNT 110 x10^3mcL (130-400)
[2020-10-03 13:10] VITALS: BP 109/75
--- NOTE | 2020-10-03 14:08 | NUR ---
PATIENT IS RESTING QUIETLY IN BED. NO INDICATION OF DISTRESS AT THIS TIME. GUARDS AT BEDSIDE AND SECURITY MAINTAINED.
[2020-10-03 17:42] VITALS: BP 121/77
--- NOTE | 2020-10-03 18:45 | NUR ---
PATIENT DENIES ANY DISTRESS AT THIS TIME GIVING THE THUMBS UP. GUARD AT BEDSIDE AND SECURITY MAINTAINED.
--- NOTE | 2020-10-03 19:50 | NUR ---
RECEIVED PT IN BED AWAKE, RESTING COMFORTABLY. A/O X 4 ABLE TO MAKE NEEDS KNOWN, ABLE TO FOLLOW COMMANDS, SPEECH IS CLR, NO GILLIAM OR DIZZINESS. LUNGS SOUNDS CLR BILATERALLY, SPO2 98% ON RA. RADIAL AND PEDAL PULSES PRESENT, NO EDEMA NOTED. ON TELE 13, NO C/O CHEST PAIN NOTED. IV SITE TO THE RFA, PTANE TAND FLUSHING WELL. BED TO LOWEST POSITION, CALL LIGHT WITHIN REACH. WILL CONT TO MONITOR FOR CHANGES IN CONDITION.
[2020-10-03 22:40] VITALS: BP 114/74
[2020-10-04 06:48] VITALS: BP 100/70
--- NOTE | 2020-10-04 07:30 | NUR ---
RECEIVED PATIENT IN BED IN ISOLATION FOR + CIVID 19. GUARDS AT DOOR. PATIENT IS ALERT ORIENTED SPEECH CLEAR. RESP EVEN AND UNLABORED, LUNGS CLEAR ON ROOM AIR. DENIES ANY SOB OR COUGH. AMBULATES TO THE BATHROOM PRN. TELE 13 SB HR 57. DENEIS ANY CHEST PAIN OR DISCOMFORT. NO ACUTE DISTRESS NOTED.
[2020-10-04 07:45] LABS: CALCIUM 9.4 mg/dL (8.5-10.1); CARBON DIOXIDE 30.3 mmol/L (21-32); CHLORIDE SERUM 102 mmol/L (98-107); CREATININE SERUM 1.2 mg/dL (0.7-1.3); GFR1 > 60 mL/min; GLUCOSE SERUM 79 mg/dL (74-106); POTASSIUM SERUM 4.7 mmol/L (3.5-5.1); SODIUM SERUM 139 mmol/L (136-145)
[2020-10-04 07:52] LABS: BASOPHIL % 0.6 % (0-2); RED CELL DISTRIBUTION WIDTH 13.1 % (11.5-14.5)
--- NOTE | 2020-10-04 07:54 | NUR ---
PT IN BED RESTING COMFORTABLY WITH EYES CLOSED. EASILY ARROUSABLE. NO C/O PAIN NO ACUTE DISTRESS NOTED. RESP IS EVEN AND UNLABORED, NEEDS ATTENDED AND MET, REMAINED ON RA WITH SPO2 OF 98%. 2 CIM OFFICERS OUTSIDE THE ROOM. ENDORSED CARE TO NEXT SHIFT NURSE.
[2020-10-04 08:21] LABS: PLATELET COUNT 123 x10^3mcL (130-400)
[2020-10-04 09:34] VITALS: BP 106/74
[2020-10-04 12:48] VITALS: BP 106/75
--- NOTE | 2020-10-04 13:41 | NUR ---
PRC SWAB COLLECTED ORDERED. PATIENT SITTING UP IN BED. MO CHANGE IN CONDITION NOTED. WILL COTNINUE TO MONITOR.
--- NOTE | 2020-10-04 15:30 | NUR ---
PATIENT'S PLAN OF CARE WAS DISCUSSED AND REVIEWED WITH STRIKE PLATE ATTACHER:JOSIE BEASLEY. I HAVE REVIEWED THE DATA COLLECTION BY STRIKE PLATE ATTACHER (NAME):JOSIE BEASLEY. ENTERED ON (DATE/TIME):10/04/20. I CONCUR WITH THE DATA AND ANY EXCEPTIONS OR COMMENTS ARE LISTED BELOW:
[2020-10-04 17:44] VITALS: BP 123/69
--- NOTE | 2020-10-04 17:51 | NUR ---
RECEIVED CALL FROM ARGENIS AT [facility] BED CONTROL, STATES BED IS AVAILABLE FOR THIS PATIENT TONIGHT;PROGRESSIVE UNIT, ROOM 306, ACCEPTING PHYSICIAN IS DR. ARBOLEDA, PHONE FOR NURSING REPORT: [phone]. DR. Polina ARBOLEDA MADE AWARE ABOVE INFO.
--- NOTE | 2020-10-04 18:43 | NUR ---
PATIENT TO TRANSFER TO [facility].
--- NOTE | 2020-10-04 18:57 | NUR ---
ATTEMPTED TO CALL REPORT TO [facility]. [facility] PHONE SYSTEM IS DOWN. UNABLE TO CALL OUT. WILL ENCORSE TO VALARIE PUENTE.
--- NOTE | 2020-10-04 20:20 | NUR ---
PT LEAVES VIA GURNEY WITH TRANSPORT SYSTEM AT SIDE ALONG WITH TWO GUARDS. TELE MONITOR REMOVED. IV TO RFA PATENT AND INTACT. ALL BELONGINGS KEPT WITH PT ON GURNEY. ALL DISCHARGE PAPERWORK AND PACKET GIVEN. REPORT CALLED TO PROGRESSIVE UNIT AT [facility], SPOKE TO LISA PUENTE WHO WILL ASSUME PLAN OF CARE.
== END 2020-10-04 20:20 | disposition short-term general hospital (02) | DRG 280 ==
LOC: ED 12:55 → DU 14:27
PROVIDERS: Emergency Medicine; Internal Medicine Geriatric Medicine; ADMIT Internal Medicine; ATTEND Internal Medicine
PROC: 4A023N7 Measurement of Cardiac Sampling and Pressure, Left Heart, Percutaneous Approach (ICD-10-PCS; principal; 2020-09-22 07:30)
PROC: B2111ZZ Fluoroscopy of Multiple Coronary Arteries using Low Osmolar Contrast (ICD-10-PCS; 2020-09-22 07:30)
DX: I21.4 Non-ST elevation (NSTEMI) myocardial infarction (principal); U07.1 COVID-19; I25.110 Atherosclerotic heart disease of native coronary artery with unstable angina pectoris; I10 Essential (primary) hypertension; E78.5 Hyperlipidemia, unspecified; E03.9 Hypothyroidism, unspecified; R09.02 Hypoxemia; I25.2 Old myocardial infarction; Z95.818 Presence of other cardiac implants and grafts
CPT/HCPCS: CLHCL; 83880; C1769; C1894; G0378; J1644; J1650; J2001; J2250; J3010; Q9967; U0003

== ENCOUNTER 2020-10-27 01:39 | Emergency (ER) | payer OTHER ==
[~2020-10-27] VITALS: Ht 167.6 cm; Wt 81.6 kg
[~2020-10-27 01:39] MED LIST: ASPIRIN FOR CHI81 M1 PO; D-10001 TAB PO; DULCOLAX5 M1 PO; LEVOXYL0.05 MG PO; LIPI10 PO; NOR5 PO; OMEPRAZOLE MAGN20 M1 PO
[2020-10-27 04:25] VITALS: BP 102/58; Ht 167.6 cm; Wt 81.6 kg
[2020-10-27 05:32] LABS: CARBON DIOXIDE 26.7 mmol/L (21-32); CHLORIDE SERUM 106 mmol/L (98-107); GFR1 > 60 mL/min; GLUCOSE SERUM 103 mg/dL (74-106); POTASSIUM SERUM 4.1 mmol/L (3.5-5.1); SODIUM SERUM 141 mmol/L (136-145)
[2020-10-27 05:36] LABS: ALBUMIN 3.7 g/dL (3.4-5.0); ALKALINE PHOSPHATASE 156 U/L (46-116); ALT/SGPT 35 U/L (16-63); AMYLASE 45 U/L (25-115); AST/SGOT 27 U/L (15-37); BILIRUBIN TOTAL 0.5 mg/dL (0.20-1.00); LIPASE 160 IU/L (73-393)
[2020-10-27 05:48] LABS: PLATELET COUNT 218 x10^3mcL (152-348); RED CELL DISTRIBUTION WIDTH 13.8 % (12.1-16.2)
[2020-10-27 06:11] LABS: BASOPHIL 2 % (0-2); METAMYELOCTE 2 % (0-2); MONOCYTE 6 % (0-7); SEGMENTED NEUTROPHILS 80 % (37-75); rbc morphology (normal/abnorm) NORMAL (NORMAL)
== END 2020-10-27 08:02 | disposition short-term general hospital (02) ==
LOC: ED 01:39
PROVIDERS: Emergency Medicine
DX: R10.30 Lower abdominal pain, unspecified (principal); I25.2 Old myocardial infarction